=== PATIENT | female | born 1990 | race African-American/Black ===

== ENCOUNTER 2016-07-02 08:03 | Emergency (ER) | payer SELFPAY ==
[~2016-07-02] VITALS: Ht 170.2 cm; Wt 120.0 kg
[~2016-07-02 08:03] MED LIST: DEPO150I IM
[2016-07-02 08:04] VITALS: BP 124/74; PULSE 88; RESP 20; TEMP 98; O2SAT 100
[2016-07-02] MEDS ORDERED: SODIUM CHLOR 0.9% 1000 ML INJ 1,000 ML IV SCH (08:42)
[2016-07-02] MEDS ORDERED: ONDANSETRON HCL 4 MG/2 ML VIAL IVP ONE (08:45)
[2016-07-02] MEDS ORDERED: DICYCLOMINE HCL 20 MG/2 ML VIAL IM ONE (08:45)
[2016-07-02] MEDS ORDERED: SODIUM CHLORIDE 0.9% FLUSH 10 ML FLUSH IV FLUSH PRN (08:45)
[2016-07-02 08:54] VITALS: O2SAT 98
--- NOTE | 2016-07-02 09:13 | PD ---
HPI Chief Complaint: GI Complaint Time Seen by Provider: 08:42 Travel History International Travel<30 days: No Contact w/Intl Traveler<30days: No Traveled to known affect area: No History of Present Illness HPI This is a 26-year-old female with no past medical history other than migraine headaches, presents today with much of nausea vomiting diarrhea. Patient also reports pain in her right upper quadrant. She denies any fevers, chills. She denies any dysuria urgency or frequency. She denies any vaginal discharge. The patient states the pain is crampy. She reports that its been there since yesterday. She still has her gallbladder. She has no other history of previous symptoms. [facility] Past Medical History Medical History: Denies Significant Hx Blood Disorders: No GERD: Yes Migraines: Yes Tetanus Vaccination: Unknown Influenza Vaccination: No ?: Unknown LMP: 05/19/16 : 2 Para: 1 Miscarriage: 1 Past Surgical History Surgical History: No Previous Surgery Social History Alcohol Use: Yes (occasionally ) Tobacco Use: No Substance Use: No Allergies-Medications (Allergen,Severity, Reaction): Coded Allergies: No Known Allergies (Verified , 07/02/16) Reported Meds & Prescriptions Reported Meds & Active Scripts Active Zofran Odt (Ondansetron Odt) 4 Mg Tab 4 Mg SL Q8HR PRN Bentyl (Dicyclomine HCl) 10 Mg Cap 10 Mg PO TID PRN Depo-Provera Contraceptive (Medroxyprogesterone Acetate) 150 Mg/Ml Susp 150 Mg IM [id number] Review of Systems Except as stated in HPI: all other systems reviewed are Neg General / Constitutional: No: Fever, Chills HENT: No: Headaches, Sore Throat Cardiovascular: No: Irregular Rhythm Respiratory: No: Cough, Shortness of Breath Gastrointestinal: Positive: Nausea, Vomiting, Diarrhea, Abdominal Pain (right upper quadrant), No: Hematochezia Genitourinary: No: Frequency, Dysuria, Nocturia, Pelvic Pain, Discharge Musculoskeletal: No: Weakness, Pain Neurologic: No: Weakness, Headache Physical Exam Narrative GENERAL: Well-nourished, well-developed patient, in no acute respiratory distress. SKIN: Focused skin assessment warm/dry. HEAD: Normocephalic/atraumatic. EYES: No scleral icterus. No injection or drainage. NECK: Supple, trachea midline. CARDIOVASCULAR: Regular rate and rhythm without murmurs, gallops, or rubs. RESPIRATORY: Breath sounds equal bilaterally. No accessory muscle use. GASTROINTESTINAL: Abdomen soft, nondistended. She has subjective tenderness in the right upper quadrant. There is no rebound no guarding. There is no epigastric tenderness to palpation. There is no pain in her lower or mid abdominal section. MUSCULOSKELETAL: No cyanosis, or edema. NEUROLOGICAL: Awake and alert. Cranial nerves II through XII intact. Motor grossly within normal limits. Five out of 5 muscle strength in all muscle groups. Normal speech. Data Data Last Documented VS Vital Signs Date Time Temp Pulse Resp B/P Pulse Ox O2 Delivery O2 Flow Rate FiO2 07/02/16 08:54 98 Room Air 07/02/16 08:20 18 07/02/16 08:04 98.0 88 124/74 Orders Complete Blood Count With Diff (07/02/16 08:42) Comprehensive Metabolic Panel (07/02/16 08:42) Lipase (07/02/16 08:42) Urinalysis - C+S If Indicated (07/02/16 08:42) Iv Access Insert/Monitor (07/02/16 08:42) Ecg Monitoring (07/02/16 08:42) Oximetry (07/02/16 08:42) Ondansetron Inj (Zofran Inj) (07/02/16 08:45) Sodium Chlor 0.9% 1000 Ml Inj (Ns 1000 M (07/02/16 08:42) Sodium Chloride 0.9% Flush (Ns Flush) (07/02/16 08:45) Dicyclomine Inj (Bentyl Inj) (07/02/16 08:45) Ed Urine Pregnancytest Poc (07/02/16 08:42) Labs Laboratory Tests Test 07/02/16 09:02 White Blood Count 8.3 TH/MM3 Red Blood Count 4.62 MIL/MM3 Hemoglobin 14.1 GM/DL Hematocrit 40.9 % Mean Corpuscular Volume 88.5 FL Mean Corpuscular Hemoglobin 30.4 PG Mean Corpuscular Hemoglobin 34.4 % Concent Red Cell Distribution Width 13.4 % Platelet Count 215 TH/MM3 Mean Platelet Volume 10.4 FL Neutrophils (%) (Auto) 88.1 % Lymphocytes (%) (Auto) 6.6 % Monocytes (%) (Auto) 4.9 % Eosinophils (%) (Auto) 0.2 % Basophils (%) (Auto) 0.2 % Neutrophils # (Auto) 7.3 TH/MM3 Lymphocytes # (Auto) 0.6 TH/MM3 Monocytes # (Auto) 0.4 TH/MM3 Eosinophils # (Auto) 0.0 TH/MM3 Basophils # (Auto) 0.0 TH/MM3 CBC Comment DIFF FINAL Differential Comment Urine Color YELLOW Urine Turbidity HAZY Urine pH 8.5 Urine Specific [place] 1.014 Urine Protein TRACE mg/dL Urine Glucose (UA) NEG mg/dL Urine Ketones NEG mg/dL Urine Occult Blood NEG Urine Nitrite NEG Urine Bilirubin NEG Urine Urobilinogen LESS THAN 2.0 MG/DL Urine Leukocyte Esterase NEG Urine RBC 1 /hpf Urine WBC 1 /hpf Urine Squamous Epithelial 9 /hpf Cells Urine Bacteria RARE /hpf Microscopic Urinalysis Comment CULT NOT INDICATED Sodium Level 140 MEQ/L Potassium Level 3.8 MEQ/L Chloride Level 106 MEQ/L Carbon Dioxide Level 25.2 MEQ/L Anion Gap 9 MEQ/L Blood Urea Nitrogen 14 MG/DL Creatinine 0.93 MG/DL Estimat Glomerular Filtration 88 ML/MIN Rate Random Glucose 112 MG/DL Calcium Level 8.9 MG/DL Total Bilirubin 1.1 MG/DL Aspartate Amino Transf 14 U/L (AST/SGOT) Alanine Aminotransferase 16 U/L (ALT/SGPT) Alkaline Phosphatase 47 U/L Total Protein 8.3 GM/DL Albumin 3.8 GM/DL Lipase 105 U/L [facility] Medical Decision Making Medical Screen Exam Complete: Yes Emergency Medical Condition: Yes Differential Diagnosis Gastroenteritis versus cholecystitis versus pancreatitis Narrative Course This is a 26-year-old female presents with nausea vomiting diarrhea. Patient also has right upper quadrant discomfort. On examination patient has a soft abdomen. She has minimal discomfort to deep palpation in right upper quadrant. White count is within normal limits. Electrolytes showed no evidence of acute process. Urinalysis shows no evidence of abnormality. Urine test was negative. Patient has been given I V fluids and Bentyl. She states she feels much improved. She'll be given a prescription for Bentyl and Zofran. She is instructed to return if she does any worsening discomfort, fevers chills, or any other reason. Diagnosis Primary Impression: Gastroenteritis Additional Instructions: Drink plenty of fluids. Return if worse discomfort, fevers chills, or any other reason the concerns you. Med/Other Pt SpecificInfo: Prescription(s) given Scripts Ondansetron Odt (Zofran Odt)4 Mg Tab4 Mg SL Q8HR PRN (Nausea/Vomiting) #20 TAB Ref 0 Prov:Aries Lewis MD 07/02/16 Dicyclomine (Bentyl)10 Mg Cap10 Mg PO TID PRN (Bowel Management) #15 CAP Ref 0 Prov:Aries Lewis MD 07/02/16 Disposition: 01 DISCHARGE HOME Condition: Stable Aries Lewis MD July 02, 2016 09:13
[2016-07-02 09:15] LABS: AUTOMATED NEUTROPHIL # 7.3 TH/MM3 (1.8-7.7); BASOPHIL % 0.2 % (0.0-2.0); EOSINOPHIL % 0.2 % (0.0-4.0); HEMATOCRIT 40.9 % (35.0-46.0); HEMO FLAGS DIFF FINAL; LYMPH % 6.6 % (9.0-44.0); LYMPHOCYTE # 0.6 TH/MM3 (1.0-4.8); MEAN CELL VOLUME 88.5 FL (80.0-100.0); MEAN CORPUSCULAR HEMOGLOBIN 30.4 PG (27.0-34.0); MEAN CORPUSCULAR HGB CONC 34.4 % (32.0-36.0); MONO % 4.9 % (0.0-8.0); NEUT % 88.1 % (16.0-70.0); PLATELET COUNT 215 TH/MM3 (150-450); RED BLOOD COUNT 4.62 MIL/MM3 (4.00-5.30); RED CELL DISTRIBUTION WIDTH 13.4 % (11.6-17.2); WHITE BLOOD COUNT 8.3 TH/MM3 (4.0-11.0)
[2016-07-02 09:22] LABS: BACTERIA, URINE RARE /hpf; BLOOD, URINE NEG (NEG); GLUCOSE,URINE NEG (NEG); KETONE, URINE NEG (NEG); NITRITE,URINE NEG (NEG); PH, URINE 8.5 (5.0-8.5); SQUAMOUS EPITHELIAL CELL URINE 9 /hpf (0-5); URINE COLOR YELLOW (YELLW/STRAW)
[2016-07-02 09:23] LABS: COMMENT (UR) CULT NOT INDICATED; CULTURE IF INDICATED CULT NOT INDICATED
[2016-07-02 09:24] LABS: ANION GAP 9 MEQ/L (5-15); AST (GOT) 14 U/L (15-37); BICARBONATE 25.2 MEQ/L (21.0-32.0); BLOOD UREA NITROGEN 14 MG/DL (7-18); CHLORIDE 106 MEQ/L (98-107); GLOMERULAR FILTRATION RATE 88 ML/MIN (>89); POTASSIUM 3.8 MEQ/L (3.5-5.1); SODIUM (NA) 140 MEQ/L (136-145)
[2016-07-02 09:27] LABS: ALKALINE PHOSPHATASE 47 U/L (45-117); ALT (GPT) 16 U/L (10-53); TOTAL BILIRUBIN ADULT 1.1 MG/DL (0.2-1.0)
[2016-07-02] MEDS ORDERED: DICY10 PO (10:42)
[2016-07-02] MEDS ORDERED: ZOFR4TAB3 SL (10:43)
[2016-07-02 11:00] VITALS: BP 118/80; PULSE 87; RESP 20; O2SAT 100
== END 2016-07-02 11:37 | disposition home or self-care (01) ==
LOC: NEPC 08:03
DX: K52.9 Noninfective gastroenteritis and colitis, unspecified (principal); R19.7 Diarrhea, unspecified; K21.9 Gastro-esophageal reflux disease without esophagitis
CPT/HCPCS: 80053; 81001; 83690; 84703; 85025; 96361; 96372; 96374; 99284; J0500; J2405; J7030